=== PATIENT | female | born 1950 | race Caucasian/White ===

== ENCOUNTER 2020-12-21 11:23 | Inpatient (IN) ==
[2020-12-21 12:10] LABS: Basophils # (auto) 0.04 K/uL (0-0.2); Basophils % (auto) 0.8 %; Eosinophils % (auto) 4.1 %; Hematocrit (blood only) 40.7 % (37-47); Hemoglobin 13.8 g/dL (12.0-16.0); Immature Granulocytes # (auto) 0.01 K/uL (0.00-0.02); Immature Granulocytes % (auto) 0.2 %; Lymphocytes # (auto) 1.46 K/uL (1.2-3.4); Lymphocytes % (auto) 29.9 %; Mean Corpuscular Hemoglobin 31.1 pg (25-34); Mean Corpuscular Hgb Conc 33.9 g/dL (32-36); Mean Corpuscular Volume 91.7 fL (80-100); Mean Platelet Volume 11.3 fL (7.4-10.4); Monocytes # (auto) 0.36 K/uL (0.11-0.59); Monocytes % (auto) 7.4 %; Neutrophils # (auto) 2.82 K/uL (1.4-6.5); Neutrophils % (auto) 57.6 %; Platelet Count 140 K/uL (130-400); RDW Coefficient of Variation 13.5 % (11.5-14.5); RDW Standard Deviation 45.4 fL (36.4-46.3); Red Blood Count 4.44 M/uL (4.2-5.4); White Blood Count 4.89 K/uL (4.8-10.8)
[2020-12-21 12:28] LABS: Albumin Level 4.1 gm/dl (3.4-5.0); BUN Creatinine Ratio 15.2 (10-20); Calcium 9.2 mg/dl (8.5-10.1); Creatinine Clr Calc Pharmacy 56.9 ml/min; Est GFR (African American) 89.4; Est GFR (Non-African American) 77.1; Potassium 3.7 mmol/L (3.5-5.1)
[2020-12-21 12:31] LABS: Albumin Globulin Ratio 1.1 (0.9-2); Bilirubin,Total 0.6 mg/dl (0.2-1); Globulin 3.6 gm/dl (2.5-4.0); Total Protein 7.7 gm/dl (6.4-8.2)
[2020-12-21] MEDS ORDERED: hydrALAZINE HCL 20 MG/ML VIAL IV STA (13:08)
--- NOTE | 2020-12-21 13:13 | Emergency Department Note ---
Impression & Plan Hypertensive crisis, High serum chloride ED Provider Note NAME: ROM AREVALO AGE: 70 SEX: F : 1950 ARRIVES VIA: Walk-In INFORMANT: Patient ED PROVIDER(S): Kye Daniel DO CHIEF COMPLAINT: HTN HPI: Patient is a 70-year-old female with a past medical history of hyperlipidemia and hypertension. Patient was referred in by her PCP today. She saw her PCP a week ago and was referred in for an elevated blood pressure. She was started on lisinopril and discharged home. She saw her again today in follow-up and she was once again referred into the ER. Patient denies all complaints. She has no headache or change in vision. No chest pain or shortne ss of breath. No nausea, vomiting, or diarrhea. No dysuria, urgency, or frequency. No other exacerbating or remitting factors. ROS: See above HPI for pertinent positives & negatives. A total of 10 systems reviewed and were otherwise negative. PAST MEDICAL HISTORY:See Below PAST SURGICAL HISTORY:See Below FAMILY HISTORY:See Below SOCIAL HISTORY:See Below HOME MEDICATIONS:See Below ALLERGIES:See Below VITALS:See Below PHYSICAL EXAMINATION: GENERAL: Sitting up in bed, alert, well appearing, well nourished, no distress, non-toxic EYE EXAM: normal conjunctiva. PERRL and EOM's grossly intact. OROPHARYNX: no exudate, no erythema, lips, buccal mucosa, and tongue normal and mucous membranes are moist NECK: supple, no nuchal rigidity, no adenopathy, non-tender LUNGS: Clear to auscultation. Normal chest wall mechanics HEART: no murmurs, S1 normal and S2 normal ABDOMEN: abdomen soft, non-tender, normo-active bowel sounds, no masses, no rebound or guarding. BACK: Back is symmetrical on inspection and there is no deformity, no midline tenderness, no CVA tenderness. SKIN: no rashes and no bruising UPPER EXTREMITIES: upper extremities are grossly normal. LOWER EXTREMITIES: No pitting edema. NEURO EXAM: Normal sensorium, cranial nerves II-XII grossly intact, normal speech, no gross weakness of arms, no gross weakness of legs. MEDICAL DECISION MAKING: Patient is a 70-year-old female referred in by PCP for severely elevated blood pressure. On arrival was 250. Trend down to 230. IV was established blood work was obtained. Labs show no significant leukocytosis or anemia. BMP with a slightly elevated chloride at 110. LFTs bilirubin was unremarkable. Troponin was negative. TSH unremarkable. Covid was negative. EKG was nondiagnostic. She was given IV hydralazine with persistent pressures in the 230s. This trended down to 180-170. Chest x-ray was unremarkable. Triage Nursing notes reviewed. Limited review of prior medical records performed Vital Signs: reviewed and remarkable for HTN Differential diagnosis: Benign hypertension, hypertensive emergency, cardiovascular pathology, toxico logic, pheochromocytoma, electrolyte abnormality, renal disease, endorgan damage, as well as other pathologies. ER treatment provided: See below Diagnostics interpreted by me: ECG: Sinus rhythm rate of 68; normal axis No PVCs QTC [address] wave changes in the lateral leads Cardiac Monitoring: An order was placed for continuous cardiac monitoring. The monitor shows a rate of 62 with sinus rhythm. Laboratory studies: As stated above and show below. Imaging studies: Portable AP upright 1 view of the chest was unremarkable Consultation(s): none Procedures: none Critical Care: I have personally spent 40 minutes of critical care time in the direct yury gement of this patient. This includes bedside care, interpretation of diagnostic studies, and testing, discussion with consultants, patient, and family members, and other required patient management activities. This 40 minutes is in excess of all separately billable procedures. Past Med/Surg History Medical History Hypercholesteremia Hypertension Tobacco use Surgical History History of hysterectomy History of tonsillectomy and adenoidectomy Family History Sister Breast cancer Kidney disease Father Hypertension Social History (Updated 12/21/20 @ 14:43 by Khloe Vivas PA-C) Smoking Status: Former smoker Tobacco Type: Cigarettes Cigarettes Per Day: 1/2ppd x 50 years; Hx Alcohol Use: No Hx Substance Use: No Nightman Required: No Beliefs That Will Affect Care: None marital status: Single Current Living Situation: Other Current Living Situation Comment: Roommate current occupational status: employed Other Information That Helps Us Care for You: No Feels Safe at Home: Yes Safety Concerns: Feels Safe At This Time Assistive Devices: None Allergies Allergies Allergy/AdvReac Type Severity Reaction Status Date / Time codeine Allergy Unknown RASH Verified 12/21/20 13:43 PHENERGAN OR COMPAZINE Allergy Unknown FACIAL Uncoded 12/21/20 13:43 TORSION Home Meds Home Medications Medication Instructions Recorded Confirmed atorvastatin 20 mg PO QAM 12/15/20 12/21/20 ibuprofen 200 mg PO Q6H PRN 12/21/20 12/21/20 lisinopril 5 mg PO DAILY@1500 12/21/20 12/21/20 Results & Data (ED) Vital Signs Vital Signs - 24 hr 12/21/20 11:37 12/21/20 13:30 12/21/20 13:38 Temperature 36.4 C L Temperature Source Temporal Artery Scan Pulse Rate 83 66 Pulse Rate [Apical] 66 Pulse Rate from SpO2 Sensor 64 Respiratory Rate 18 15 20 Respiratory Effort / Characteristics Non-Labored Non-Labored Spontaneous Respiratory Depth Normal Normal Respiratory Pattern Regular Blood Pressure 251/107 H 216/129 H Blood Pressure [Right Arm] 216/129 H Blood Pressure Mean 155 158 Blood Pressure Mean [Right Arm] 158 Blood Pressure Position Sitting Pulse Oximetry 99 98 98 Oxygen Delivery Method Room Air Room Air Sepsis Recent Fever Within 48 Hours No Sepsis New/Unexplained Change in Mental Status No Sepsis Action Taken by Nursing No Action Required 12/21/20 13:39 12/21/20 14:00 12/21/20 14:01 Temperature Temperature Source Pulse Rate 72 63 63 Pulse Rate [Apical] Pulse Rate from SpO2 Sensor 72 62 62 Respiratory Rate 19 16 16 Respiratory Effort / Characteristics Respiratory Depth Respiratory Pattern Blood Pressure 156/82 H Blood Pressure [Right Arm] Blood Pressure Mean 106 Blood Pressure Mean [Right Arm] Blood Pressure Position Pulse Oximetry 98 97 98 Oxygen Delivery Method Sepsis Recent Fever Within 48 Hours Sepsis New/Unexplained Change in Mental Status Sepsis Action Taken by Nursing Laboratory Data Result diagrams: 12/21/20 11:30 12/21/20 11:30 Lab Results 12/21/20 12/21/20 12/21/20 Range/Units 11:30 11:30 12:30 WBC 4.89 (4.8-10.8) K/uL RBC 4.44 (4.2-5.4) M/uL Hgb 13.8 (12.0-16.0) g/dL Hct 40.7 (37-47) % MCV 91.7 (80-100) fL MCH 31.1 (25-34) pg MCHC 33.9 (32-36) g/dL RDW Std Deviation 45.4 (36.4-46.3) fL RDW Coeff of Davy 13.5 (11.5-14.5) % Plt Count 140 (130-400) K/uL MPV 11.3 H (7.4-10.4) fL Immature Gran % (Auto) 0.2 % Neut % (Auto) 57.6 % Lymph % (Auto) 29.9 % Sullivan % (Auto) 7.4 % Eos % (Auto) 4.1 % Baso % (Auto) 0.8 % Neut # (Auto) 2.82 (1.4-6.5) K/uL Lymph # (Auto) 1.46 (1.2-3.4) K/uL Sullivan # (Auto) 0.36 (0.11-0.59) K/uL Eos # (Auto) 0.20 (0-0.5) K/uL Baso # (Auto) 0.04 (0-0.2) K/uL Immature Gran # (Auto) 0.01 (0.00-0.02) K/uL Sodium 141 (136-145) mmol/L Potassium 3.7 (3.5-5.1) mmol/L Chloride 110 H (98-107) mmol/L Carbon Dioxide 28 (21-32) mmol/L Anion Gap 3.0 (3-11) BUN 12 (7-18) mg/dl Creatinine 0.77 (0.6-1.2) mg/dl Est Cr Clr Drug Dosing 56.9 ml/min Est GFR ( Amer) 89.4 Est GFR (Non-Af Amer) 77.1 BUN/Creatinine Ratio 15.2 (10-20) Glucose 122 H (70-99) mg/dl Calcium 9.2 (8.5-10.1) mg/dl Total Bilirubin 0.6 (0.2-1) mg/dl AST 19 (15-37) U/L ALT 20 (12-78) U/L Alkaline Phosphatase 72 (45-117) U/L Troponin I < 0.015 (0-0.045) ng/ml Total Protein 7.7 (6.4-8.2) gm/dl Albumin 4.1 (3.4-5.0) gm/dl Globulin 3.6 (2.5-4.0) gm/dl Albumin/Globulin Ratio 1.1 (0.9-2) TSH (0.300-4.500) uIu/ml COVID-19 Eval Order SARS-CoV-2 (PCR) (Negative) Influenza Type A (PCR) (Neg) Influenza Type B (PCR) (Neg) RSV (RT-PCR) (Neg) 12/21/20 12/21/20 12/21/20 Range/Units 12:30 13:37 13:37 WBC (4.8-10.8) K/uL RBC (4.2-5.4) M/uL Hgb (12.0-16.0) g/dL Hct (37-47) % MCV (80-100) fL MCH (25-34) pg MCHC (32-36) g/dL RDW Std Deviation (36.4-46.3) fL RDW Coeff of Davy (11.5-14.5) % Plt Count (130-400) K/uL MPV (7.4-10.4) fL Immature Gran % (Auto) % Neut % (Auto) % Lymph % (Auto) % Sullivan % (Auto) % Eos % (Auto) % Baso % (Auto) % Neut # (Auto) (1.4-6.5) K/uL Lymph # (Auto) (1.2-3.4) K/uL Sullivan # (Auto) (0.11-0.59) K/uL Eos # (Auto) (0-0.5) K/uL Baso # (Auto) (0-0.2) K/uL Immature Gran # (Auto) (0.00-0.02) K/uL Sodium (136-145) mmol/L Potassium (3.5-5.1) mmol/L Chloride (98-107) mmol/L Carbon Dioxide (21-32) mmol/L Anion Gap (3-11) BUN (7-18) mg/dl Creatinine (0.6-1.2) mg/dl Est Cr Clr Drug Dosing ml/min Est GFR ( Amer) Est GFR (Non-Af Amer) BUN/Creatinine Ratio (10-20) Glucose (70-99) mg/dl Calcium (8.5-10.1) mg/dl Total Bilirubin (0.2-1) mg/dl AST (15-37) U/L ALT (12-78) U/L Alkaline Phosphatase (45-117) U/L Troponin I (0-0.045) ng/ml Total Protein (6.4-8.2) gm/dl Albumin (3.4-5.0) gm/dl Globulin (2.5-4.0) gm/dl Albumin/Globulin Ratio (0.9-2) TSH 2.880 (0.300-4.500) uIu/ml COVID-19 Eval Order CovFluRsv at [facility] SARS-CoV-2 (PCR) NEGATIVE (Negative) Influenza Type A (PCR) Negative (Neg) Influenza Type B (PCR) Negative (Neg) RSV (RT-PCR) Negative (Neg) Administered Medications Enoxaparin Sodium (Enoxaparin Inj 40 Mg/0.4 Ml Syr) 40 mg SQ Q24H DARRIAN Stop: 01/20/21 16:59 Last Admin: 12/21/20 17:13 Dose: 40 mg Documented by: [id number] Nicotine (Nicotine 21 Mg/24 Hr Tdsy) 21 mg TD QAM DARRIAN Stop: 01/20/21 14:59 Last Admin: 12/21/20 17:13 Dose: 21 mg Documented by: [id number] Discontinued Medications Hydralazine HCl (Hydralazine Hcl 20 Mg/Ml Vial) 10 mg IV NOW STA Stop: 12/21/20 13:09 Last Admin: 12/21/20 13:28 Dose: 10 mg Documented by: [id number] Lisinopril (Lisinopril 20 Mg Tab) 20 mg PO NOW STA Stop: 12/21/20 14:24 Last Admin: 12/21/20 15:07 Dose: 20 mg Documented by: [id number] Imaging Data Radiologist's Impression: Chest X-Ray 12/21/20 13:10 XR chest 1V portable CLINICAL HISTORY: Hypertension. COMPARISON STUDY: Chest radiograph December 15, 2020. FINDINGS: Lung volumes are normal. Lungs are clear. There is no pneumothorax or pleural effusion. Cardiac size is normal. Mediastinal contours are normal. There is no evidence for pulmonary edema. There is mild upper mediastinal widening. IMPRESSION: 1. No acute cardiopulmonary findings. 2. Mild upper mediastinal widening. Although nonspecific, this is likely due to vascular structures. ACT 112: Negative or not required by law. Electronically signed by: Samy Coburn M.D. 12/21/2020 1:59 PM Discharge Plan Visit Data Chief Complaint: Hypertension Stated Complaint: HIGH BLOOD PRESSURE ED Provider: Kye Daniel Discharge Problem: Hypertensive crisis, High serum chloride Patient Disposition: Admitted As Inpatient Discharge Instructions Interventions: ED Discharge Assessment Last Done: 12/21/20 16:37
--- NOTE | 2020-12-21 14:00 | XRay Report ---
XR chest 1V portable CLINICAL HISTORY: Hypertension. COMPARISON STUDY: Chest radiograph December 15, 2020. FINDINGS: Lung volumes are normal. Lungs are clear. There is no pneumothorax or pleural effusion. Car diac size is normal. Mediastinal contours are normal. There is no evidence for pulmonary edema. There is mild upper mediastinal widening. IMPRESSION: 1. No acute cardiopulmonary findings. 2. Mild upper mediastinal widening. Although nonspecific, this is likely due to vascular structures. ACT 112: Negative or not required by law. Electronically signed by: Samy Coburn M.D. 12/21/2020 1:59 PM
[2020-12-21] MEDS ORDERED: POLYETHYLENE (MIRALAX) 17 GM PACK PO PRN (14:19)
[2020-12-21] MEDS ORDERED: MAGNESIUM HYDROXIDE SUSP 30 ML UDC PO PRN (14:19)
[2020-12-21] MEDS ORDERED: ALUMINUM/MAGNESIUM SUSP 30 ML UDC PO PRN (14:19)
[2020-12-21] MEDS ORDERED: NITROGLYCERIN SL 0.4 MG/TAB TAB SL PRN (14:19)
[2020-12-21] MEDS ORDERED: lisinopril 20 MG TAB PO STA (14:23)
--- NOTE | 2020-12-21 14:44 | History & Physical Report ---
Date of Service December 21, 2020 Assessment & Plan (1) Hypertensive urgency: Pt is 70 y/o F with PMH HLD presented to ER for elevated BP noted one week ago in clinic. Pt had not had recorded BP since clinic visit in 2019 and at that time was 130/92. Intermittent ZENDEJAS if skips meals. Denies CP, SOB, dizziness, vision changes, extremity edema. Today In ER pt afebrile, R: 18, P: 83, BP: 251/107, 99% on RA. Negative initial troponin, EKG: sinus rhythm, incomplete RBBB, LVH criteria, initial labs unremarkable -In ER given hydralazine 10mg IV BP down to 156/93 -Pt on low dose lisinopril currently and plan to increase lisinopril dose and add HCTZ -Monitor BP -TSH pending -Obtain urine -Obtain resting echo -BMP in am (2) Hypercholesteremia: -Continue atorvastatin -Lipid panel in am (3) Tobacco use: -Smoking cessation encouraged -Nicotine patch DVT Prophylaxis -Lovenox SQ Full Code as per discussion with pt Follows with Dr Raegan Friedman at [facility] for routine care Pt was seen and care coordinated with Dr Ibarra. See addendum History of Present Illness Chief Complaint: Elevated BP Primary Care Provider: Raegan Friedman MD Pt is 70 y/o F with PMH HLD presented to ER for elevated BP. Pt was PCP 12/15/2020 and noted had elevated blood pressures in clinic and was referred to ER. In ER patient had negative troponin, no acute ST changes on EKG and unremarkable labs was given hydralazine 10 mg IV with BP 235/105 down to 184/90 and was started on lisinopril 5 mg daily. Patient had follow-up appointment with PCP today and BPs 200s/100s in clinic and was referred back to ER. Of note pt had not had BP checked since 2019. Patient denies any symptoms currently. Denies headache, chest pain, shortness of breath, extremity edema, dizziness, vision changes. She does report she will get intermittent headaches if she misses meals which resolves upon eating. Patient works at [employer] and states was pulling plastic cups apart 5 days ago started with discomfort mid upper back. She was taking ibuprofen 800 mg twice daily for the past 4 days. She reports improvement of back pain. Denies any other [id number] medication use or recreational drug use. Drinks 1 cup of coffee and 20 ounces diet Pepsi daily. Smokes half pack per day x50 years. Denies alcohol use. Patient reports his active denies any exertional chest pain or shortness of breath. Has dry cough in the morning for many years and attributes this to smoking. Denies fever/chills, diaphoresis, N/V/D/C, dizziness, syncope, vision changes, neck pain, CP, SOB, orthopnea, palpitations, sore throat, choking, otalgia, rhinorrhea, abdominal pain, paresthesias, weakness, extremity weakness, extremity edema, rashes, urinary symptoms. Allergies Allergy/AdvReac Type Severity Reaction Status Date / Time codeine Allergy Unknown RASH Verified 12/21/20 13:43 PHENERGAN OR COMPAZINE Allergy Unknown FACIAL Uncoded 12/21/20 13:43 TORSION Home Medications Medication Instructions Recorded Confirmed Type atorvastatin 20 mg PO QAM 12/15/20 12/21/20 History ibuprofen 200 mg PO Q6H PRN 12/21/20 12/21/20 History lisinopril 5 mg PO DAILY@1500 12/21/20 12/21/20 History Past Med/Surg History Medical History Hypercholesteremia Hypertension Tobacco use Surgical History History of hysterectomy History of tonsillectomy and adenoidectomy Family History Sister Breast cancer Kidney disease Father Hypertension Social History (Updated 12/21/20 @ 14:43 by Khloe Vivas PA-C) Smoking Status: Former smoker Tobacco Type: Cigarettes Cigarettes Per Day: 1/2ppd x 50 years; Hx Alcohol Use: No Hx Substance Use: No Sand Cutter Required: No Beliefs That Will Affect Care: None marital status: Single Current Living Situation: Other Current Living Situation Comment: Roommate current occupational status: employed Other Information That Helps Us Care for You: No Feels Safe at Home: Yes Safety Concerns: Feels Safe At This Time Assistive Devices: None Review of Systems Review of Systems: All systems reviewed & are unremarkable except as noted in HPI & below Physical Exam Physical Exam: General: no distress, WDWN Head: normocephalic, atraumatic Eyes: PERRL, EOM's intact, conjunctiva non-injected, anicteric ENT: normal inspection external ears, nose, mucous membranes moist Neck: supple, trachea midline Lungs: clear, no respiratory distress, no wheezing/rhonchi/rales CV: RRR, no JVD, no pretibial edema Abd: normal BS, soft, non-tender Ext: no cyanosis, no calf tenderness Neuro: A&O x 3, no focal deficits noted, normal affect Skin: warm, dry Results & Data Results & Data ([facility]) Vital Signs (Past 12 Hours) Vital Signs Temp Pulse Pulse Resp BP BP Pulse Ox 12/21/20 13:38 66 20 216/129 H 98 12/21/20 11:37 36.4 C L 83 18 251/107 H 99 Laboratory Results Short CBC 12/21/20 Range/Units 11:30 WBC 4.89 (4.8-10.8) K/uL Hgb 13.8 (12.0-16.0) g/dL Hct 40.7 (37-47) % Plt Count 140 (130-400) K/uL BMP 12/21/20 11:30 Sodium 141 Potassium 3.7 Chloride 110 H Carbon Dioxide 28 BUN 12 Creatinine 0.77 Glucose 122 H Calcium 9.2 Cardiac Enzymes 12/21/20 Range/Units 12:30 Troponin I < 0.015 (0-0.045) ng/ml Liver Function 12/21/20 Range/Units 11:30 Total Bilirubin 0.6 (0.2-1) mg/dl AST 19 (15-37) U/L ALT 20 (12-78) U/L Alkaline Phosphatase 72 (45-117) U/L Albumin 4.1 (3.4-5.0) gm/dl Diagnostic Findings Chest X-Ray 12/21/20 13:10 XR chest 1V portable CLINICAL HISTORY: Hypertension. COMPARISON STUDY: Chest radiograph December 15, 2020. FINDINGS: Lung volumes are normal. Lungs are clear. There is no pneumothorax or pleural effusion. Cardiac size is normal. Mediastinal contours are normal. There is no evidence for pulmonary edema. There is mild upper mediastinal widening. IMPRESSION: 1. No acute cardiopulmonary findings. 2. Mild upper mediastinal widening. Although nonspecific, this is likely due to vascular structures. ACT 112: Negative or not required by law. Electronically signed by: Samy Coburn M.D. 12/21/2020 1:59 PM ECG Rate (beats per minute): 68 Rhythm: sinus rhythm Additional Comments: incomplete RBBB; LVH criteria Code Status & VTE Plan VTE Prophylaxis Plan VTE Prophylaxis will be ordered: Yes Supervising Physician Co-Signing Physician Notes pt seen and examined, care co-ordinated with Khloe Vivas PA-C 70 yo F who has not been following with any physician for past several years , as recently at ER with hypertensive urgency SBP in 200's , was discharged with Lisinpril 5 mg daily pt was seen it family physician's clinic for follow up visit SBP noted > 200 , was sent to ER received IV hydralazine 10 mg X1 SBP remains > 180 pt has been asymptomatic no complain of dizzy spell or lightheadedness, no SOB , chest heaviness or MORENO no headache , neck pain or blurred vision no lower ext edema Cxray no pulm congestion EKG no acute ST-T wave change lab shows, normal electrolyte , renal function no evidence of end organ damage Physical Exam : Physical exam: General: No acute distress, alert awake oriented x3 HEENT: PERRLA, EOMI, Heart: Regular S1-S2, no carotid bruit, no JVD, no lower extremity edema Lungs: Clear to auscultate, no wheeze or rales Abdomen: Soft nontender, no organomegaly Extremity: No cyanosis, no deformity, normal strength 5 out of 5 with upper and lower Neuro: No focal neurological deficit normal speech, normal visual field, Motor strength : normal both upper and lower extremity, sensation intact Psych: Alert awake oriented x3, normal affect Hypertensive Urgency : prior hx of HTN , had not had any physician follow up for years recently started on low dose Lisinopril pt remains completely asymptomatic increased lisinopril dose to 20 mg daily , added HCTZ 25 mg daily ECHO to assess hypertensive heart disease renal function stable if BP does not improved with adjustment of meds renal function worsens -need to consider renal artery dopplar r/o renal artery stenosis monitor in tele low salt diet needs close follow up with family physician for BP monitoring and medication adjustment Rosio Ibarra MD
[2020-12-21 14:46] LABS: Influenza A virus by PCR Negative (Neg); Influenza B virus by PCR Negative (Neg); RSV by PCR Negative (Neg); SARS CoV2 RNA(COVID-19) InHosp NEGATIVE (Negative)
--- NOTE | 2020-12-21 16:41 | Electrocardiogram Report ---
Test Reason : Blood Pressure : / mmHG Vent. Rate : 068 BPM Atrial Rate : 068 BPM P-R Int : 126 ms QRS Dur : 098 ms QT Int : 404 ms P-R-T Axes : 059 034 056 degrees QTc Int : 429 ms Normal sinus rhythm Incomplete right bundle branch block Minimal voltage criteria for LVH, may be normal variant Borderline ECG When compared with ECG of 15-DEC-2020 12:17, No significant change was found Confirmed by Wilian Jean ([id number]) on 12/21/2020 4:41:02 PM Referred By: Confirmed By:Wilian Jean
[2020-12-21] MEDS: NICOTINE 21 MG/24 HR TDSY TD SCH (17:13)
[2020-12-21] MEDS: ENOXAPARIN INJ 40 MG/0.4 ML SYR SQ SCH (17:13)
[2020-12-21] MEDS: ACETAMINOPHEN 325 MG TAB PO PRN (19:11)
[2020-12-21 20:32] LABS: Appearance Urine Clear (Clear); Bacteria Urine Automated Negative (Negative); Bilirubin Urine Negative (Negative); Blood Urine Negative (Negative); Color Urine Yellow; Glucose Urine UA Negative (Negative); Ketones Urine Negative (Negative); Leukocyte Esterase Urine Trace (Negative); Nitrite Urine Negative (Negative); Protein Urine Negative (Negative); RBC Urine Automated 0-4 /hpf (0-4); Specific Gravity Urine 1.014 (1.000-1.030); Urobilinogen Urine Negative (Negative); pH Urine 7.5 (4.5-7.5)
[2020-12-22] MEDS: ACETAMINOPHEN 325 MG TAB PO PRN ×2 (03:17→09:01)
[2020-12-22] MEDS: ENALAPRILAT 1.25 MG in DEXTROSE 5% 25 ML IV PRN ×2 (03:37→10:22)
[2020-12-22 06:54] LABS: BUN Creatinine Ratio 19.8 (10-20); Calcium 9.1 mg/dl (8.5-10.1); Creatinine Clr Calc Pharmacy 61.5 ml/min; Est GFR (African American) 98.6; Est GFR (Non-African American) 85.1; Potassium 3.8 mmol/L (3.5-5.1)
[2020-12-22] MEDS: ATORVASTATIN 20 MG TAB PO SCH (08:59)
[2020-12-22] MEDS: ASPIRIN 81 MG ECTAB PO SCH (08:59)
[2020-12-22] MEDS: LISINOPRIL/HCTZ 20/25MG 1 TAB PO SCH (08:59)
[2020-12-22] MEDS: NICOTINE 21 MG/24 HR TDSY TD SCH (08:59)
[2020-12-22] MEDS: amLODIPine BESYLATE 5 MG TAB PO SCH (12:12)
[2020-12-22] MEDS: ENOXAPARIN INJ 40 MG/0.4 ML SYR SQ SCH (16:50)
--- NOTE | 2020-12-22 19:37 | Hospitalist Progress Note ---
Date of Service December 22, 2020 Assessment & Plan (1) Hypertensive urgency: Pt is 70 y/o F with PMH HLD presented to ER for elevated BP noted one week ago in clinic. Pt had not had recorded BP since clinic visit in 2019 and at that time was 130/92. Intermittent ZENDEJAS if skips meals. Denies CP, SOB, dizziness, vision changes, extremity edema. Pt was sent from PCP office to the ER for Elevated BP BP on admission was 251/107 Received hydralazine 10mg IV in the ER that dropped BP to 156/93 Was started on Lisinopril /HCTZ 20/25mg BP continues to elevate Amlodipine 5 mg daily added ECHO showed normal LF wall motion with EF 60-65% Will check BMP in am Continue monitor BP (2) Hypercholesteremia: Continue atorvastatin Total chol 161, LDL 74, HDL 70 and trig 85 (3) Tobacco use: Smoking cessation encouraged Nicotine patch DVT Prophylaxis Lovenox SQ Full Code Admission and Anticipated Discharge Date Admission Date: December 21, 2020 Subjective Pt was seen and examined and examined for follow up of HTN Sitting at the edge of the bed with no distress Pt said that she feels fine Denies any chest pain, palpitation, dizziness and SOB Review of Systems Review of Systems: All systems reviewed & are unremarkable except as noted in Subjective Physical Exam Physical Exam: General- No acute distress Head- atraumatic Eyes- PERRL, EOMI, ENT- oropharynx clear Neck- supple, no JVD Lungs- clear to auscultation Heart- regular rhythm; no murmur Abdomen- normal bowel sounds, soft, nontender Extremities- no calf tenderness, +trace edema Neuro- alert, oriented x 3; PERRL, EOMI; no facial palsy; no dysarthria Skin- warm & dry Results & Data Results & Data ([facility]) Vital Signs (Past 12 Hours) Vital Signs Temp Pulse Pulse Pulse Resp BP Pulse Ox 12/22/20 19:07 36.6 C 73 18 162/88 H 96 12/22/20 16:00 67 12/22/20 15:22 36.8 C 72 16 153/86 H 96 12/22/20 12:03 37.0 C 81 16 187/90 H 97 12/22/20 09:34 66 187/86 H 12/22/20 08:00 78 12/22/20 07:56 36.7 C 70 19 181/86 H 96
[2020-12-23 06:54] LABS: BUN Creatinine Ratio 20.5 (10-20); Calcium 8.8 mg/dl (8.5-10.1); Creatinine Clr Calc Pharmacy 54.3 ml/min; Est GFR (African American) 93.8; Est GFR (Non-African American) 80.9; Potassium 3.7 mmol/L (3.5-5.1)
[2020-12-23] MEDS: NICOTINE 21 MG/24 HR TDSY TD SCH (07:51)
[2020-12-23] MEDS: amLODIPine BESYLATE 5 MG TAB PO SCH (07:51)
[2020-12-23] MEDS: ASPIRIN 81 MG ECTAB PO SCH (07:52)
[2020-12-23] MEDS: ATORVASTATIN 20 MG TAB PO SCH (07:52)
[2020-12-23] MEDS: LISINOPRIL/HCTZ 20/25MG 1 TAB PO SCH (07:52)
--- NOTE | 2020-12-23 13:24 | Hospitalist Progress Note ---
Date of Service December 23, 2020 Assessment & Plan (1) Hypertensive urgency: Pt is 70 y/o F with PMH HLD presented to ER for elevated BP noted one week ago in clinic. Pt had not had recorded BP since clinic visit in 2019 and at that time was 130/92. Intermittent ZENDEJAS if skips meals. Denies CP, SOB, dizziness, vision changes, extremity edema. Pt was sent from PCP office to the ER for Elevated BP BP on admission was 251/107 Received hydralazine 10mg IV in the ER that dropped BP to 156/93 Continue Lisinopril /HCTZ 20/25mg and amlodipine 5 mg on discharge BP stable ECHO showed normal LF wall motion with EF 60-65% Check BMP in 1 week Continue monitor BP Pt was advised to follow a low salt diet (2) Hypercholesteremia: Continue atorvastatin Total chol 161, LDL 74, HDL 70 and trig 85 (3) Tobacco use: Smoking cessation encouraged Nicotine patch DVT Prophylaxis Lovenox SQ Full Code Admission and Anticipated Discharge Date Admission Date: December 21, 2020 Subjective Pt was seen and examined for follow up of elevate blood pressure Lying in bed with no distress Pt said that she feels fine She said that she has no headache Denies any chest pain, palpitation, dizziness and SOB Review of Systems Review of Systems: All systems reviewed & are unremarkable except as noted in Subjective Physical Exam Physical Exam: General- No acute distress Head- atraumatic Eyes- PERRL, EOMI, ENT- oropharynx clear Neck- supple, no JVD Lungs- clear to auscultation Heart- regular rhythm; no murmur Abdomen- normal bowel sounds, soft, nontender Extremities- no calf tenderness, +trace edema Neuro- alert, oriented x 3; PERRL, EOMI; no facial palsy; no dysarthria Skin- warm & dry Results & Data Results & Data ([facility]) Vital Signs (Past 12 Hours) Vital Signs Temp Pulse Pulse Pulse Resp BP Pulse Ox 12/23/20 11:00 37 C 65 16 137/79 96 12/23/20 07:00 36.5 C 68 83 16 126/65 98 12/23/20 04:22 36.5 C 64 16 111/72 97
--- NOTE | 2020-12-25 08:25 | Discharge Summary ---
Date of Service December 23, 2020 Admission HPI Per Admitting Provider Pt is 70 y/o F with PMH HLD presented to ER for elevated BP. Pt was PCP 12/15/2020 and noted had elevated blood pressures in clinic and was referred to ER. In ER patient had negative troponin, no acute ST changes on EKG and unremarkable labs was given hydralazine 10 mg IV with BP 235/105 down to 184/90 and was started on lisinopril 5 mg daily. Patient had follow-up appointment with PCP today and BPs 200s/100s in clinic and was referred back to ER. Of note pt had not had BP checked since 2019. Patient denies any symptoms currently. Denies headache, chest pain, shortness of breath, extremity edema, dizziness, vision changes. She does report she will get intermittent headaches if she misses meals which resolves upon eating. Patient works at [employer] and states was pulling plastic cups apart 5 days ago started with discomfort mid upper back. She was taking ibuprofen 800 mg twice daily for the past 4 days. She reports improvement of back pain. Denies any other [id number] medication use or recreational drug use. Drinks 1 cup of coffee and 20 ounces diet Pepsi daily. Smokes half pack per day x50 years. Denies alcohol use. Patient reports his active denies any exertional chest pain or shortness of breath. Has dry cough in the morning for many years and attributes this to smoking. Denies fever/chills, diaphoresis, N/V/D/C, dizziness, syncope, vision changes, neck pain, CP, SOB, orthopnea, palpitations, sore throat, choking, otalgia, rhinorrhea, abdominal pain, paresthesias, weakness, extremity weakness, extremity edema, rashes, urinary symptoms. Admission Exam Per Admitting Provider General: no distress, WDWN Head: normocephalic, atraumatic Eyes: PERRL, EOM's intact, conjunctiva non-injected, anicteric ENT: normal inspection external ears, nose, mucous membranes moist Neck: supple, trachea midline Lungs: clear, no respiratory distress, no wheezing/rhonchi/rales CV: RRR, no JVD, no pretibial edema Abd: normal BS, soft, non-tender Ext: no cyanosis, no calf tenderness Neuro: A&O x 3, no focal deficits noted, normal affect Skin: warm, dry Principal Diagnosis Hypertensive urgency Hypercholesteremia Tobacco use Discharge Exam General- No acute distress Head- atraumatic Eyes- PERRL, EOMI, ENT- oropharynx clear Neck- supple, no JVD Lungs- clear to auscultation Heart- regular rhythm; no murmur Abdomen- normal bowel sounds, soft, nontender Extremities- no calf tenderness, +trace edema Neuro- alert, oriented x 3; PERRL, EOMI; no facial palsy; no dysarthria Skin- warm & dry Discharge Data Allergies Allergy/AdvReac Type Severity Reaction Status Date / Time codeine Allergy Unknown RASH Verified 12/21/20 13:43 PHENERGAN OR COMPAZINE Allergy Unknown FACIAL Uncoded 12/21/20 13:43 TORSION Consultations 12/21/20 13:13 ED Decision to Admit Stat Ordered Studies XR chest 1V portable CLINICAL HISTORY: Hypertension. COMPARISON STUDY: Chest radiograph December 15, 2020. FINDINGS: Lung volumes are normal. Lungs are clear. There is no pneumothorax or pleural effusion. Cardiac size is normal. Mediastinal contours are normal. There is no evidence for pulmonary edema. There is mild upper mediastinal widening. IMPRESSION: 1. No acute cardiopulmonary findings. 2. Mild upper mediastinal widening. Although nonspecific, this is likely due to vascular structures. ACT 112: Negative or not required by law. Electronically signed by: Samy Coburn M.D. 12/21/2020 1:59 PM Dictated: 12/21/20 1356Transcribed: 12/21/20 1358 Hospital Course (1) Hypertensive urgency: Pt is 70 y/o F with PMH HLD presented to ER for elevated BP noted one week ago in clinic. Pt had not had recorded BP since clinic visit in 2018 and at that time was 130/92. Intermittent ZENDEJAS if skips meals. Denies CP, SOB, dizziness, vision changes, extremity edema. Pt was sent from PCP office to the ER for Elevated BP BP on admission was 251/107 Received hydralazine 10mg IV in the ER that dropped BP to 156/93 Continue Lisinopril /HCTZ 20/25mg and amlodipine 5 mg on discharge BP stable ECHO showed normal LF wall motion with EF 60-65% Check BMP in 1 week Continue monitor BP Pt was advised to follow a low salt diet (2) Hypercholesteremia: Continue atorvastatin Total chol 161, LDL 74, HDL 70 and trig 85 (3) Tobacco use: Smoking cessation encouraged Nicotine patch DVT Prophylaxis Lovenox SQ Full Code Total Time Total Time Spent Total Time Spent (In Minutes): 35 minutes Total Time Includes: Examination of the Patient, Discharge Planning, Medication Reconciliation, Communication With Other Providers and Other Discharge Plan Discharge Items Patient Disposition: Home - Self-Care Reason For Visit: HIGH BLOOD PRESSURE Discharge Diagnosis: Hypertensive urgency Hypercholesteremia Tobacco use Activity: Resume your previous activity Non-emergency contact: Primary Care Provider Call non-emergency contact if: you have any medication questions Follow-up/Referrals: Raegan Friedman MD [Primary Care Provider] - (Date & Time 12/28/2020 9:20 AM Provider Raegan Friedman MD Department [facility] ) Diet: Low Sodium (2gm) Addtl Attending Provider Instructions: Follow up with your primary care provider Dr. Friedman on 12/28/2020 at 9:20 AM at the [facility] Follow up a low salt diet Check BMP in 1 week to monitor your electrolytes and kidney function since starting on Lisinopril/Hydrochlorothiazide (Your provider will order the lab at your next appointment) Continue monitor your blood pressure and bring your blood pressure log at your next appointment with your provider Counseling on smoking cessation Pending Studies at Discharge: No Stand-Alone Forms: [facility], Smoking Cessation Medications and DC Order Prescriptions: New amlodipine [Norvasc] 5 mg Tablet 5 mg PO QAM Qty: 30 RF: 0 lisinopril-hydrochlorothiazide 20-25 mg Tablet 1 tab PO QAM Qty: 30 RF: 0 Continued atorvastatin 20 mg tablet 20 mg PO QAM RF: 0 ibuprofen 200 mg Tablet 200 mg PO Q6H PRN (Reason: Pain) RF: 0 Discontinued lisinopril 5 mg tablet 5 mg PO DAILY@1500 RF: 0 Discharge Orders: Discharge Order (Routine); Ordered 12/23/20 Ordered By: Maria Esther Flores Admission Data Admit Date/Time: 12/21/20 14:19 Attending Provider: Maria Esther Flores Admit Provider: Rosio Ibarra Primary Care Provider: Raegan Friedman Other Providers: Rosio Ibarra Other Interventions: Discharge Summary Assessment (RN) Last Done: 12/23/20 14:00
== END 2020-12-23 15:36 | disposition home or self-care (01) | DRG 305 ==
LOC: ED 11:23 → SUATTDRO 14:19 → 2S 14:19